=== PATIENT | female | born 1995 | race Caucasian/White ===

== ENCOUNTER 2018-02-18 16:59 | Emergency (ER) | payer SELFPAY ==
--- OUTSIDE RECORDS SUMMARY | 2018-02-18 17:02 | XMS REPORT ---
:1995 Author Organization eClinicalWorks Care Team Providers Name Role Phone Rory Lopez Provider Role Unavailable Allergies, Adverse Reactions, Alerts Substance Reaction Event Type N.K.D.A. Info Not Available Non Drug Allergy Problems Problem Type Condition Code Onset Dates Condition Status Assessment Menorrhagia with irregular cycle N92.1 Active Problem Menorrhagia with irregular cycle N92.1 Active Medications Medication Code System Code Instructions Start End Date Status Dosage Date Sprintec 28 [facility] [id number] 0.25-35 MG-MCG November 15, Active 1 tablet Orally Once a day 2017 Results No Known Results Summary Purpose eClinicalWorks Submission
--- OUTSIDE RECORDS SUMMARY | 2018-02-18 17:02 | XMS REPORT ---
:1995 Author Organization eClinicalWorks Care Team Providers Name Role Phone Rory Lopez Provider Role Unavailable Allergies No Known Allergies Problems Problem Type Condition Code Onset Dates Condition Status Problem Menorrhagia with irregular cycle N92.1 Active Medications No Known Medications Results No Known Results Summary Purpose eClinicalWorks Submission
[2018-02-18 17:55] LABS: Absolute Lymphocytes (CBC) 1.3 K/uL (0.7-4.9); Absolute Monocytes 0.4 K/uL (0.1-1.3); Absolute Neutrophil 2.2 K/uL (1.8-8.0); Basophils % 0.9 % (0-1.3); Lymphocytes % 29.4 % (15.3-44.8); MCV 86.5 fL (80-100); MPV 11.1 fL (7.6-11.3); Monocytes % 10.2 % (3.3-12.3); RBC Red Blood Cell Count 4.86 M/uL (3.86-4.86)
[2018-02-18 17:56] LABS: Urine Blood 2+ (NEG); Urine Glucose NEGATIVE (NEG); Urine Protein NEGATIVE (NEG)
[2018-02-18 18:14] LABS: Potassium 3.9 mmol/L (3.5-5.1)
--- NOTE | 2018-02-18 18:57 | EDPHYS ---
Physician Documentation [facility] Name: Lianne Mcdaniel Age: 22 yrs Sex: Female : 1995 Arrival Date: 02/18/2018 Time: 17:02 Bed 28 Private MD: None, None ED Physician Milad Olivera HPI: 02/18 19:29 This 22 yrs old Female presents to ER via Ambulatory with complaints of jr8 Vaginal Bleeding, + Preg <12wks. 19:29 The patient presents to the emergency department with vaginal bleeding, that is jr8 moderate. The estimated gestational age is 5 weeks. Previous pregnancies: in previous pregnancies patient has had . Associated signs and symptoms: The patient has no apparent associated signs or symptoms. The patient has not experienced similar symptoms in the past. The patient has not recently seen a physician. 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 - Social history:: Smoking status: Patient/guardian denies using tobacco. - Ebola Screening: : Patient denies exposure to infectious person Patient denies travel to an Ebola-affected area in the 21 days before illness onset. ROS: 19:29 Eyes: Negative for injury, pain, redness, and discharge, ENT: Negative for injury, jr8 pain, and discharge, Neck: Negative for injury, pain, and swelling, Cardiovascular: Negative for chest pain, palpitations, and edema, Respiratory: Negative for shortness of breath, cough, wheezing, and pleuritic chest pain, Abdomen/GI: Negative for abdominal pain, nausea, vomiting, diarrhea, and constipation, Back: Negative for injury and pain, MS/Extremity: Negative for injury and deformity, Skin: Negative for injury, rash, and discoloration, Neuro: Negative for headache, weakness, numbness, tingling, and seizure. 19:29 : Positive for vaginal bleeding, Negative for urinary symptoms, urinary frequency, small amounts, hematuria, pelvic pain, vaginal discharge, vaginal itching. Exam: 19:29 Eyes: Pupils equal round and reactive to light, extra-ocular motions intact. Lids and jr8 lashes normal. Conjunctiva and sclera are non-icteric and not injected. Cornea within normal limits. Periorbital areas with no swelling, redness, or edema. ENT: Nares patent. No nasal discharge, no septal abnormalities noted. Tympanic membranes are normal and external auditory canals are clear. Oropharynx with no redness, swelling, or masses, exudates, or evidence of obstruction, uvula midline. Mucous membranes moist. Neck: Trachea midline, no thyromegaly or masses palpated, and no cervical lymphadenopathy. Supple, full range of motion without nuchal rigidity, or vertebral point tenderness. No Meningismus. Cardiovascular: Regular rate and rhythm with a normal S1 and S2. No gallops, murmurs, or rubs. Normal PMI, no JVD. No pulse deficits. Respiratory: Lungs have equal breath sounds bilaterally, clear to auscultation and percussion. No rales, rhonchi or wheezes noted. No increased work of breathing, no retractions or nasal flaring. Abdomen/GI: Soft, non-tender, with normal bowel sounds. No distension or tympany. No guarding or rebound. No evidence of tenderness throughout. Back: No spinal tenderness. No costovertebral tenderness. Full range of motion. Skin: Warm, dry with normal turgor. Normal color with no rashes, no lesions, and no evidence of cellulitis. MS/ Extremity: Pulses equal, no cyanosis. Neurovascular intact. Full, normal range of motion. Neuro: Awake and alert, GCS 15, oriented to person, place, time, and situation. Cranial nerves II-XII grossly intact. Motor strength 5/5 in all extremities. Sensory grossly intact. Cerebellar exam normal. Normal gait. Vital Signs: 17:12 Resp 16; Weight 106.59 kg; Height 6 ft. 0 in. (182.88 cm); Pain 0/10; ss 17:16 BP 137 / 88; Pulse 78; Temp 98.9(O); Pulse Ox 100% ; ss 18:05 BP 129 / 79; Pulse 79; Resp 18; Pulse Ox 100% on R/A; Pain 0/10; mg2 18:47 BP 122 / 76; Pulse 80; Resp 18; Pulse Ox 100% on R/A; Pain 0/10; mg2 17:12 Body Mass Index 31.87 (106.59 kg, 182.88 cm) ss MDM: 17:13 Patient medically screened. jr8 18:55 Data reviewed: vital signs, nurses notes, lab test result(s), and as a result, I will jr8 discharge patient. Data interpreted: Pulse oximetry: on room air is 100 %. Interpretation: normal. Counseling: I had a detailed discussion with the patient and/or guardian regarding: the historical points, exam findings, and any diagnostic results supporting the discharge/admit diagnosis, lab results, the need for outpatient follow up, an OB/Gyne specialist, to return to the emergency department if symptoms worsen or persist or if there are any questions or concerns that arise at home. ED course: Discussed with patient that based on LMP and HCG she is too early to detect any intrauterine . Needs HCG redraw after the weekend. If worse to come back . 02/18 17:13 Order name: Quantitative Hcg; Complete Time: 18:31 [facility] 02/18 17:13 Order name: Abo/rh Typing; Complete Time: 18:55 [facility] 02/18 17:13 Order name: Basic Metabolic Panel; Complete Time: 18:31 02/18 17:13 Order name: CBC with Diff; Complete Time: 18:01 8 02/18 17:55 Order name: Urine Dipstick--Ancillary (enter results); Complete Time: 18:01 ag 02/18 17:55 Order name: Urine --Ancillary (enter results); Complete Time: 18:01 ag 02/18 17:13 Order name: Urine Test (obtain specimen); Complete Time: 17:43 [facility] 02/18 17:13 Order name: IV Saline Lock; Complete Time: 17:37 02/18 17:13 Order name: Labs collected and sent; Complete Time: 17:37 [facility] 02/18 17:13 Order name: NPO; Complete Time: 17:38 [facility] 02/18 17:13 Order name: Urine Dipstick-Ancillary (obtain specimen); Complete Time: 17:43 jr8 Administered Medications: No medications were administered Point of Care Testing: Urine : 19:05 hCG Reading: Negative; mg2 Disposition: 02/18/18 18:57 Discharged to Home. Impression: Threatened . - Condition is Stable. - Discharge Instructions: Threatened Miscarriage, Vaginal Bleeding During , First Trimester, Pelvic Rest. - Medication Reconciliation Form, Thank You Letter, Antibiotic Education, Prescription Opioid Use form. - Follow up: Michelle Lopez MD; When: 2 - 3 days; Reason: Recheck today's complaints, Continuance of care, Repeat Beta-HCG (48 Hours), Re-evaluation by your physician. - Problem is new. - Symptoms have improved. Addendum: 02/22/2018 22:15 Co-signature as Attending Physician, Milad Olivera MD I agree with the assessment and p s1 plan of care. Signatures: Dispatcher [employer] EDMS Cuca Hanks RN RN Sandro Blunt PA PA jr8 Milad Olivera MD MD ps1 Thor Rosales RN RN mg2 Corrections: (The following items were deleted from the chart) 02/18 19:05 18:57 02/18/2018 18:57 Discharged to Home. Impression: Threatened . Condition mg2 is Stable. Forms are Medication Reconciliation Form, Thank You Letter, Antibiotic Education, Prescription Opioid Use. Follow up: Michelle Lopez; When: 2 - 3 days; Reason: Recheck today's complaints, Continuance of care, Repeat Beta-HCG (48 Hours), Re-evaluation by your physician. Problem is new. Symptoms have improved. jr8
--- NOTE | 2018-02-18 18:57 | ER ---
Nurse's Notes [facility] Name: Lianne Mcdaniel Age: 22 yrs Sex: Female : 1995 Arrival Date: 02/18/2018 Time: 17:02 Bed 28 Private MD: None, None Diagnosis: Threatened Presentation: 02/18 17:10 Presenting complaint: Patient states: + UPT last week, and vaginal bleeding that began ss 2 hours ago, is described as heavy. Denies pain. Transition of care: patient was not received from another setting of care. Onset of symptoms was February 18, 2018. Risk Assessment: Do you want to hurt yourself or someone else? Patient reports no desire to harm self or others. Initial Sepsis Screen: Does the patient meet any 2 criteria? No. Patient's initial sepsis screen is negative. Does the patient have a suspected source of infection? No. Patient's initial sepsis screen is negative. Care prior to arrival: None. 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 - Social history:: Smoking status: Patient/guardian denies using tobacco. - Ebola Screening: : Patient denies exposure to infectious person Patient denies travel to an Ebola-affected area in the 21 days before illness onset. Screenin:44 Abuse screen: Denies threats or abuse. Denies injuries from another. Nutritional mg2 screening: No deficits noted. Tuberculosis screening: No symptoms or risk factors identified. Fall Risk IV access (20 points). Assessment: 17:44 Obstetrical Assessment: General assessment: awake and alert. General: Appears in no mg2 apparent distress. comfortable, Behavior is calm, cooperative. Pain: Denies pain. Neuro: Level of Consciousness is awake, alert, Oriented to person, place, time, situation. Cardiovascular: Capillary refill < 3 seconds Patient's skin is warm and dry. Respiratory: Airway is patent Respiratory effort is even, unlabored, Respiratory pattern is regular, symmetrical. GI: No signs and/or symptoms were reported involving the gastrointestinal system. : No signs and/or symptoms were reported regarding the genitourinary system. : Reports vaginal bleeding that is moderate flow, since morning. EENT: No signs and/or symptoms were reported regarding the EENT system. Derm: Skin is intact, Skin is pink, warm \\T\\ dry. normal. Musculoskeletal: Circulation, motion, and sensation intact. 18:47 Reassessment: Patient appears in no apparent distress at this time. Patient and/or mg2 family updated on plan of care and expected duration. Pain level reassessed. Patient is alert, oriented x 3, equal unlabored respirations, skin warm/dry/pink. Vital Signs: 17:12 Resp 16; Weight 106.59 kg; Height 6 ft. 0 in. (182.88 cm); Pain 0/10; ss 17:16 BP 137 / 88; Pulse 78; Temp 98.9(O); Pulse Ox 100% ; ss 18:05 BP 129 / 79; Pulse 79; Resp 18; Pulse Ox 100% on R/A; Pain 0/10; mg2 18:47 BP 122 / 76; Pulse 80; Resp 18; Pulse Ox 100% on R/A; Pain 0/10; mg2 17:12 Body Mass Index 31.87 (106.59 kg, 182.88 cm) ss Vitals: 19:05 Heart Tones not detectable. mg2 ED Course: 17:02 Patient arrived in ED. sb2 17:03 None, None is Private Physician. sb2 17:07 Thor Rosales, RN is Primary Nurse. mg2 17:11 Triage completed. ss 17:12 Arm band placed on right wrist. ss 17:13 Sandro Blunt PA is PHCP. jr8 17:13 Milad Olivera MD is Attending Physician. jr8 17:44 No provider procedures requiring assistance completed. Inserted saline lock: 22 gauge mg2 in left antecubital area, using aseptic technique. Blood collected. by diploma pharmacy technician German. 17:45 Initial lab(s) drawn, by ks, sent to lab. Urine collected: clean catch specimen, clear, jp3 nakul colored. 17:46 Patient has correct armband on for positive identification. Placed in gown. Call light mg2 in reach. Side rails up X 1. Door closed. Warm blanket given. 18:56 Michelle Lopez MD is Referral Physician. jr8 19:04 IV discontinued, intact, bleeding controlled, No redness/swelling at site. Pressure mg2 dressing applied. Administered Medications: No medications were administered Point of Care Testing: Urine : 19:05 hCG Reading: Negative; mg2 Outcome: 18:57 Discharge ordered by . jr8 19:04 Discharged to home ambulatory, with family. mg2 19:04 Condition: good 19:04 Discharge instructions given to patient, family, Instructed on discharge instructions, follow up and referral plans. Demonstrated understanding of instructions, follow-up care. 19:05 Patient left the ED. mg2 Signatures: Cuca Hanks, RN RN ss Sandro Blunt PA PA jr8 Margarita Lopez sb2 Thor Rosales RN RN mg2 Milad Ching jp3
[2018-02-18 20:08] VITALS: TEMP 98.9; O2SAT 100
[2018-02-18 20:10] VITALS: BP 122/76
== END 2018-02-18 19:05 | disposition home or self-care (01) ==
LOC: ER 16:59
DX: O20.0 Threatened abortion (principal); Z3A.01 Less than 8 weeks gestation of pregnancy
CPT/HCPCS: 36415; 80048; 81003; 81025; 84702; 85025; 86900; 86901; 99284

== ENCOUNTER 2020-03-29 03:59 | Inpatient (IN) | payer SELFPAY ==
[2020-03-28 13:31] LABS: Urine Appearance CLEAR; Urine Bilirubin NEGATIVE (NEG); Urine Blood NEGATIVE (NEG); Urine Color YELLOW; Urine Glucose NEGATIVE (NEG); Urine Protein NEGATIVE (NEG); Urine Specific Gravity 1.015 (1.005-1.030); Urine Urobilinogen 0.2 mg/dL (0.2-1.0)
[2020-03-28 13:34] LABS: Absolute Lymphocytes (CBC) 1.8 K/uL (0.7-4.9); Basophils % 0.3 % (0-1.3); Hematocrit 35.8 % (36.0-45.0); Lymphocytes % 18.5 % (15.3-44.8); RBC Red Blood Cell Count 4.03 M/uL (3.86-4.86)
[2020-03-28 13:37] LABS: Protime INR 0.87
[2020-03-28 13:43] LABS: Urine Bacteria 20-50 /HPF (<20); Urine Culture Reflex Order REFLEXED; Urine RBC <5 /HPF (NONE SEEN); Urine Yeast FEW (NONE SEEN)
[2020-03-28 13:44] LABS: Urine Yeast with Hyphae PRESENT
[2020-03-28 19:50] LABS: RPR (Rapid Plasma Reagin) NON-REACT (NON-REACT)
--- OUTSIDE RECORDS SUMMARY | 2020-03-29 04:01 | XMS REPORT | Continuity of Care Document ---
:1995 Author Organization [facility] t Address [facility] [place] [address] Care Team Providers Name Role Phone Unavailable Unavailable Unavailable Problems Condition Condition Condition Status Onset Resolution Last Treating Co mments Source Name Details Category Date Date Treatment Clinician Date Menorrhagi Menorrhagi Problem Active [facility] - irregular irregular Prakash kun cycle cycle [facility] Hypertensi Hypertensi Diagnosis Active [facility], [facility] - unspecifie unspecifie Me moria d type d type l [facility] Clin[facility] Spontaneou Spontaneou Diagnosis Active [facility] Caitlin k[facility] - [facility] Allergies, Adverse Reactions, Alerts This patient has no known allergies or adverse reactions. Medications Ordered Filled Start Stop Current Ordering Indication Dosage Frequency Signature Comments Components Source Medication Medication Date Date Medication? Clinician (SIG) Name Name Sprintec 28 Sprsaschaec 28 Yes Rory [address] [facility] 5-07 Rekhi [facility] - 00:00: [facility] 00 [facility] Procedures This patient has no known procedures. Encounters Start End Encounter Admission Attending Care Care Encounter Source Date/Time Date/Time Type Type Clinicians Facility Department ID 2018-02-22 2018-02-22 [facility] [id number] [facility] 2017-11-25 2017-11-25 [facility] [id number] [facility] 14[facility]40[facility]00 14[facility]40[facility]00 [facility] 2017-11-15 2017-11-15 [facility] [id number] [facility] 14:15[facility] 14:15[facility]00 [facility] Clinics Results This patient has no known results.
[2020-03-29] MEDS ORDERED: Ringers Lactate 1,000 ML IV PRN (04:14)
[2020-03-29 04:28] VITALS: BMI 31.4
[2020-03-29] MEDS ORDERED: NA CIT/CITRIC AC 30 ML ORAL UDC PO ONE (04:33)
[2020-03-29] MEDS ORDERED: CEFAZOLIN 2 GM in NA CHLORIDE 0.9% 100 ML IVPB ONE (04:34)
[2020-03-29] MEDS ORDERED: CEFAZOLIN/SWI 2gm 2 GM/20 ML SYR IV ONE (04:45)
[2020-03-29] MEDS ORDERED: FAMOTIDINE 20 MG/2 ML VIAL IV SCH (05:00)
[2020-03-29] MEDS ORDERED: Ringers Lactate 1,000 ML IV SCH (05:00)
[2020-03-29] MEDS ORDERED: METOCLOPRAMIDE 10 MG/2mL INJ IV SCH (05:00)
[2020-03-29] MEDS ORDERED: LIDOCAINE 1% MPF 5 ML VIAL ONE (07:27)
[2020-03-29] MEDS ORDERED: BUPIVACAINE 0.75% (PF) 2 ML SP ONE (07:28)
[2020-03-29] MEDS ORDERED: MORPHINE SULFATE/PF 1 MG/ML (10 ML AMP) ONE (07:28)
[2020-03-29] MEDS ORDERED: OXYTOCIN 10 UNIT/ML ML IV ONE (07:30)
[2020-03-29] MEDS ORDERED: CARBOPROST TROME 250 MCG/ML IM ONE (07:36)
[2020-03-29] MEDS ORDERED: METHYLERGONOVINE 0.2MG/ML AMP IM ONE (07:37)
[2020-03-29] MEDS ORDERED: EPHEDRINE SULF 50 MG/ML VIAL ONE (07:47)
[2020-03-29] MEDS ORDERED: NS 0.9% VIAL 10 ML ONE ×2 (07:48→07:50)
[2020-03-29] MEDS ORDERED: Phenylephrine HCl 10 MG/ML 1 ML VIAL ONE (07:50)
[2020-03-29] MEDS ORDERED: propofoL 200 MG/20 ML VIAL IV ONE (07:51)
[2020-03-29] MEDS ORDERED: ROCURONIUM 50 MG/5 ML VIAL IV ONE (08:02)
[2020-03-29] MEDS ORDERED: GLYCOPYRROLATE 0.2 MG/ML SYR ONE ×2 (08:04)
[2020-03-29] MEDS ORDERED: NEOSTIGMINE 1 MG/ML -10 ML VIAL ONE (08:07)
[2020-03-29] MEDS ORDERED: DIPHENHYDRAMINE 25 MG TAB/CAP PO PRN (08:28)
[2020-03-29] MEDS ORDERED: Oxycodone HCl/Acetaminophen 1 TAB TAB PO PRN ×2 (08:28)
[2020-03-29] MEDS ORDERED: ONDANSETRON 4 MG/2 ML VIAL IV PRN (08:28)
[2020-03-29] MEDS ORDERED: KETOROLAC 30 MG/ML INJ IV PRN (08:28)
[2020-03-29] MEDS ORDERED: KETOROLAC 30 MG/ML INJ IM PRN (08:28)
[2020-03-29] MEDS ORDERED: BISACODYL 10 MG RECTAL SUPP RC PRN (08:28)
[2020-03-29] MEDS ORDERED: ONDANSETRON 4 MG (ODT) TAB PO PRN (08:28)
[2020-03-29] MEDS ORDERED: ACETAMINOPHEN 500 MG TAB PO PRN ×2 (08:28)
[2020-03-29] MEDS ORDERED: SUCCINYLCHOLINE 20 MG/ML (10 ML) IV ONE (08:52)
--- NOTE | 2020-03-29 08:56 | OP ---
Surgeon: Pasquale Castillo MD Lianne Suh is a 24-year-old 3, para 1, for repeat section at 39 weeks. Infection; blood loss; anesthetic complications; injury to bladder, bowel, ureter; postoperative complications; clots in legs; and pneumonia discussed. The patient knows fully well this does not constitute all the possible problems that could occur during or following surgery. Rh positive, immune to Rubella. Negative COVID. Negative beta strep screen. A 2 g of Ancef given for prophylaxis. After attempted spinal block, this was ineffective when the patient was tested and therefore, general anesthetic was employed. After patient was fully asleep, transverse incision was created over the previous incision site. The incision was carried to the fascia. The fascia was incised and incision carried transversely bilaterally. Anterior fascial plane was developed with both blunt and sharp dissection, underlying rectus muscle , peritoneum entered, low transverse bladder flap developed, low transverse uterine incision created. A 6 pounds 13 ounces female delivered without difficulties. Apgars 9 and 9. Cord blood specimen obtained. Placenta removed manually. Uterus cleared of clot and blood and exteriorized. Cervical os dilated with 1 with a ring clamp. Uterus mildly hypotonic, 0.2 mg of Methergine IM as well as IV drip Pitocin. Estimated blood loss 1100 cc. The uterus closed with a running lock stitch of 1 chromic. Gutters cleared of clot and blood. Reinspection of suture line, 1 [id number] stitch placed in the right angle for complete hemostasis. At this point, muscles were reapproximated using 0 Vicryl, 1 PDS used for the fascia running from either angle to the midline, subcutaneous tissue closed with interrupted sutures of 2-0 plain, onel used for the skin. The patient tolerated all procedures well and transferred back to her room in good condition. Final Diagnoses: Term intrauterine , repeat section, spinal block followed by general anesthetic, mild uterine hypertonus.(hypotonus) RIAZC/MODL Voice ID: [id number] Report ID: [id number] JUANY
[2020-03-29] MEDS ORDERED: OXYTOCIN/LR 20 UNIT/1,000 ML BAG IV SCH (09:00)
[2020-03-29] MEDS ORDERED: D5LR 1,000 ML with OXYTOCIN 20 UNIT IV SCH ×2 (09:00)
[2020-03-29] MEDS: METHYLERGONOVINE 0.2 MG TAB PO PRN ×3 (09:15→18:00)
[2020-03-29] MEDS ORDERED: Ringers Lactate 2,000 ML IV ONE (15:32)
[2020-03-29] MEDS ORDERED: CEFAZOLIN 2 GM in NA CHLORIDE 0.9% 100 ML IVP ONE (16:00)
[2020-03-29] MEDS ORDERED: CEFAZOLIN/SWI 2gm 2 GM/20 ML SYR ONE (16:16)
[2020-03-29] MEDS ORDERED: CEFAZOLIN/SWI 2gm 2 GM/20 ML SYR IVP ONE (18:00)
[2020-03-29] MEDS: IBUPROFEN 600 MG TAB PO PRN (23:00)
--- NOTE | 2020-03-30 07:49 | DS ---
Lianne Suh is a 24-year-old 3, para 1, 39 weeks for repeat section. The patient underwent repeat section, low transverse cervical. General anesthetic, spinal bloc k anesthetic was not sufficient. Delivery of a 6 pounds 13 ounces female, Apgars 9 and 9. Mild uter ine hypotonus, 1100 cc blood loss. Ancef for prophylaxis pre and postop. Postoperatively afebrile, ambulating. Lochia is normal. We will discontinue Grossman and IV. The patient will be dismissed alyssa morning, to report back to my office or Wednesday next week for staple removal. To report any temperature elevation of 100 degrees or greater, severe pain, heavy bleeding, or any other type of abnormalities. Thus far, she has only taken Motrin for discomfort. We will give her a prescripti on for tramadol if she chooses, but if not, we will shred the prescription. She is advised to get a flu shot either at my office or local pharmacies as soon as possible. Tdap has been discussed again. No post spinal block problems noted. Final Diagnoses: Term intrauterine 39 weeks with repeat section, spinal block fol lowed by general anesthetic. Mild uterine hypotonus. NBC/MODL Voice ID: [id number] Report ID: [id number]
[2020-03-30] MEDS ORDERED: MAGNESIUM HYDROXIDE 8% 30 ML PO PRN (08:28)
[2020-03-30] MEDS: IBUPROFEN 600 MG TAB PO PRN (11:23)
[2020-03-30 16:52] VITALS: BP 134/73; TEMP 97.8
[2020-03-30] MEDS ORDERED: Tdap (Diph,Pertuss(Acell),Tet Vac) 0.5 ML SYR IMVAC ONE (17:05)
[2020-04-01 03:16] LABS: HBsAG Nonreactive (Nonreactive)
== END 2020-03-30 18:10 | disposition home or self-care (01) | DRG 788 ==
LOC: 2ND-WC 03:59
PROVIDERS: ADMIT Specialist; ATTEND Specialist
PROC: 10D00Z1 Extraction of Products of Conception, Low, Open Approach (ICD-10-PCS; principal; 2020-03-29)
DX: O82 Encounter for cesarean delivery without indication (principal); O62.2 Other uterine inertia; Z3A.39 39 weeks gestation of pregnancy; Z37.0 Single live birth; Z20.828 Contact with and (suspected) exposure to other viral communicable diseases
CPT/HCPCS: 36415; 81001; 85014; 85025; 85610; 85730; 86592; 86850; 86900; 86901; 87086; 87088; 87340; 88307; 90471; 90715; J0330; J0690; J2210; J2370; J2405; J2590; J2704; J2710; J2765; J7120; J7121; U0003